=== PATIENT | female | born 1990 | race Caucasian/White ===

== ENCOUNTER 2024-09-01 12:51 | Emergency (ER) | payer OTHER, SELFPAY ==
[2024-09-01 12:58] VITALS: BP 139/85
--- NOTE | 2024-09-01 15:07 | ED.SKININJ ---
HPI-Injury
General
Chief Complaint: Bite
Source: patient
Time Seen by Provider: 09/01/24 14:53
History of Present Illness-Injury
Initial Injury comments:
Very pleasant 34-year-old female presents emergency department after suffering a dog bite to the posterior aspect of her right ear. This happened earlier today. She works as a riveter pneumatic and has confirmation that the dog is fully immunized. She is
not up-to-date on her tetanus. She denies any other injury or complaints.
Past History
Past History
ED Past Medical History: Psychiatric and Other (Possible POTS)
ED Past Surgical History: Gynecological
Social History
Tobacco: Non-smoker
Alcohol: None
Drug: None
Employment: Employed
Phy Exam
Physical Exam
Physical Exam:
GENERAL: Alert , in no apparent distress
EYE: pupils equal and reactive
NECK: Supple, no significant adenopathy.
ENT: o/p clr, mmm. R ear with linear shallow lac/abrasion noted post aspect ear (in area behind ear adjac to skull base), no active bleed, no cartilage exposure measuring approx 4 cm, and a 1 cm abrasion post to this.
CARDIAC: Regular rate and rhythm .
LUNGS: Clear breath sounds bilaterally, no acute respiratory distress, no wheezes/rales/rhonchi
ABDOMEN: Soft, without focal tenderness, no r/g, no cvat
NEUROLOGICAL: Alert and oriented, no focal neuro deficits
SKIN: Warm and dry, skin intact except as above.
MUSCULOSKELETAL: No edema, well perfused.
PSYCH: Normal and appropriate interaction.
Course
Orders/Labs/Results
Orders:
Orders
09/01/24 14:59
Tetanus/Diphth/Acelpertussis [Adacel] 0.5 ml IM .ONCE ONE
09/01/24 15:02
Amoxicillin 875 mg/Clav 125 mg [Augmentin 875 mg/125 mg] 1 tablet PO NOW STA
Nursing to Place Non Medication Order As Directed
Physician Order: wound care to R ear please
Above order entered?: Yes
Vital Signs
Initial and Last Documented VS:
Initial Vital Signs
Temp Pulse Resp BP Pulse Ox
98.2 F 92 20 139/85 99
09/01/24 12:58 09/01/24 12:58 09/01/24 12:58 09/01/24 12:58 09/01/24 12:58
Last Documented Vital Signs
Temp Pulse Resp BP Pulse Ox
98.2 F 92 20 139/85 99
09/01/24 12:58 09/01/24 12:58 09/01/24 12:58 09/01/24 12:58 09/01/24 12:58
Procedures
Laceration Closure
Right Ear:
Status of Wound: clean
Size of Wound in cm: 4
Description of Wound Edges: sharp
Preparation: cleaned with saline
Anesthesia: 1% Lidocaine
Revision/Debridement: routine- no revision
Wound exploration: explored to base- no FB
Type of Closure: single layer closure
Skin Closure Material: 6-0 nylon
Number of sutures: 7
Additional information:
INitially attempted to apply glue but difficult given location. Sutures placed without difficulty. There is a very verys hallow linear abrasion post to lac that does not necessitate repair.
Update Note
Update Note:
Patient presents to the Emergency Department with _ear laceration
Number and Complexity of Problems Addressed at the Encounter
� Chronic conditions affecting care:
� Acute Exacerbation and/or Progression of Chronic Illness:
� Differential Diagnosis includes: But not limited to laceration, abrasion, avulsion, etc. etc.
Amount and/or Complexity of Data to be Reviewed and Analyzed
� I performed an independent evaluation of and my interpretation is:
EKG:
CT:
Xrays:
Laboratory Studies:
Other:
� Review of other/old records reveals:
� Clinical information was obtained by an independent historian:
� Prescriptions/Medications Considered but not given:
� Further testing considered but not performed:
Risk of Complications and/or Morbidity or Mortality of Patient Management
� Social determinants of health affecting care:
� Discussion with other providers (PCP, Hospitalists, Consultants, etc):
� Escalation of care including admission/observation vs risk of discharge considered:Patient is up-to-date on her tetanus. Discussed with patient portance of follow-up and reasons return to the ER.
ED Attending Note
-
Portions of this chart may have been created with voice recognition software.� Occasional wrong word or��sound alike� substitutions may have occurred due to the inherent limitations of voice recognition software.
Discharge Plan
Departure
Patient Disposition: Home (Routine Discharge)
Date of Disposition: 09/01/24
Time of Disposition: 17:14
Patient with high blood pressure during this ER visit?: Yes
Condition: Good
Discharge Problem:
Dog bite
Instructions: Animal Bites (DC), Laceration Repair With Stitches (DC), BLOOD PRESSURE
Prescriptions:
New
amoxicillin-pot clavulanate 875-125 mg tablet
1 tab PO BID Qty: 10 0RF
fluconazole 150 mg tablet
150 mg PO ONCE Qty: 1 0RF
Referrals:
Ronan Caldwell DO [Family Provider] - Follow up in 2-3 days
Activity Restrictions/Additional Instructions:
PLEASE MONITOR THE AREA CLOSELY FOR SIGNS INFECTION. IF YOU DEVELOP SWELLING, REDNESS, DRAINAGE, FEVER, INCREASING OR PERSISTENT PAIN, OR OTHER WORRISOME SIGNS, PLEASE RETURN TO THE ER IMMEDIATELY. YOU SHOULD HAVE YOUR SUTURES REMOVED IN
APPROXIMATELY 5 TO 7 DAYS
Interventions
Interventions:
*General Assessment Last Done: 09/01/24 12:58
ED-Skin Assessment Last Done: 09/01/24 14:27
Discharge Date and Time
Print Language: CITIZ[place]
[2024-09-01] MEDS: ADACEL 0.5 ML IM (15:18)
[2024-09-01] MEDS: AUGMENTIN 875 MG/125 MG 1 TABLET PO (15:18)
== END 2024-09-01 17:18 | disposition home or self-care (01) ==
LOC: EMR 12:51
PROVIDERS: EMERGENCY PHYSICIAN Emergency Medicine; FAMILY PHYSICIAN Family Medicine
DX: S01.351A Open bite of right ear, initial encounter (principal); W54.0XXA Bitten by dog, initial encounter; R03.0 Elevated blood-pressure reading, without diagnosis of hypertension; Z23 Encounter for immunization
CPT/HCPCS: 99282; 90471; 12013; 90715